=== PATIENT | male | born 1990 | race Caucasian/White ===

== ENCOUNTER 2021-05-26 19:45 | Emergency (ER) | payer OTHER ==
[~2021-05-26] VITALS: Ht 177.8 cm; Wt 72.6 kg
[~2021-05-26 19:45] MED LIST: PERCOCET 5/3251 TAB PO; POLY119PG PO; SURFAK240 M1 PO
[2021-05-26] MEDS ORDERED: NAPROXEN375 MG PO (22:54)
[2021-05-26] MEDS ORDERED: AMOX1TAB5 PO (22:54)
[2021-05-26] MEDS ORDERED: INTESTINEX680 M2 PO (22:54)
[2021-06-09] MEDS ORDERED: ACETAMINOPHEN650 M2 (08:27)
== END 2021-05-26 22:58 | disposition home or self-care (01) ==
LOC: ER 19:45
DX: S01.81XA Laceration without foreign body of other part of head, initial encounter (principal); S06.0X0A Concussion without loss of consciousness, initial encounter; W01.0XXA Fall on same level from slipping, tripping and stumbling without subsequent striking against object, initial encounter; Y93.01 Activity, walking, marching and hiking; Y92.018 Other place in single-family (private) house as the place of occurrence of the external cause; Y99.8 Other external cause status